=== PATIENT | male | born 1970 | race American Indian/Alaskan Native ===

== ENCOUNTER 2019-07-12 18:29 | Emergency (ER) | payer MEDICAID ==
[~2019-07-12] VITALS: Ht 190.5 cm; Wt 106.8 kg
[~2019-07-12 18:29] MED LIST: NO HOME MEDS
[2019-07-12] MEDS ORDERED: TETanus/Pertussis (Acell)/Diphther VAC/PF (Tdap-Adult) 0.5ml syringe IM ONE (18:50)
[2019-07-12] MEDS ORDERED: LIDOcaine 1% w/epiNEPHrine 1:200,000 30ml vial IM ONE (18:50)
[2019-07-12] MEDS ORDERED: rabies immune globulin/PF 150 unit/ml inj IM ONE (18:50)
[2019-07-12] MEDS ORDERED: rabies vaccine (PCEC)/PF 2.5 unit kit IM ONE (18:50)
[2019-07-12] MEDS ORDERED: HYDROcodone/acetaminophen 5mg/325mg tablet PO ONE (18:50)
[2019-07-12] MEDS ORDERED: rabies immune globulin/PF 150 unit/ml inj IMVAC ONE (19:50)
[2019-07-12] MEDS ORDERED: rabies vaccine (PCEC)/PF 2.5 unit kit IMVAC ONE (19:50)
[2019-07-12] MEDS ORDERED: HYDR-4383 PO (21:03)
[2019-07-12] MEDS ORDERED: AMOX-580 PO (21:03)
[2019-07-12 21:20] VITALS: BP 140/88
== END 2019-07-12 21:27 | disposition home or self-care (01) ==
LOC: ER 18:29
DX: S51.812A Laceration without foreign body of left forearm, initial encounter (principal); S81.812A Laceration without foreign body, left lower leg, initial encounter; S61.532A Puncture wound without foreign body of left wrist, initial encounter; S81.032A Puncture wound without foreign body, left knee, initial encounter; Z20.3 Contact with and (suspected) exposure to rabies; F12.90 Cannabis use, unspecified, uncomplicated; F15.90 Other stimulant use, unspecified, uncomplicated; Z98.890 Other specified postprocedural states; W54.0XXA Bitten by dog, initial encounter; Y93.89 Activity, other specified; Y99.8 Other external cause status; Y92.89 Other specified places as the place of occurrence of the external cause
CPT/HCPCS: 12002; 73110; 90375; 90471; 90472; 90675; 96372; 99284

== ENCOUNTER 2019-07-15 08:36 | Emergency (ER) | payer MEDICAID ==
[~2019-07-15] VITALS: Ht 190.5 cm; Wt 104.9 kg
[~2019-07-15 08:36] MED LIST changes: +AMOX-580 PO; +HYDR-4383 PO
[2019-07-15] MEDS ORDERED: rabies vaccine (PCEC)/PF 2.5 unit kit IMVAC ONE (09:25)
[2019-07-15 09:37] VITALS: BP 131/80
== END 2019-07-15 09:38 | disposition home or self-care (01) ==
LOC: ER 08:37
DX: Z23 Encounter for immunization (principal); F12.90 Cannabis use, unspecified, uncomplicated; F15.90 Other stimulant use, unspecified, uncomplicated; Z98.890 Other specified postprocedural states; Z79.899 Other long term (current) drug therapy
CPT/HCPCS: 90471; 90675; 99283

== ENCOUNTER 2019-07-20 10:41 | Emergency (ER) | payer MEDICAID ==
[~2019-07-20] VITALS: Ht 190.5 cm; Wt 106.0 kg
[2019-07-20 10:56] VITALS: BP 118/80
[2019-07-20] MEDS ORDERED: AMOX-580 PO (12:23)
[2019-07-20] MEDS ORDERED: RIFA300C4 PO (12:25)
[2019-07-20] MEDS ORDERED: rifampin 300mg capsule PO ONE (12:25)
[2019-07-20] MEDS ORDERED: amox tr/potassium clavulanate 875/125mg TAB PO ONE (12:25)
[2019-07-20] MEDS ORDERED: rifampin 300mg capsule PO SCH (12:25)
--- NOTE | 2019-07-20 12:40 | NUR ---
two sutures removed from forearm and 1 suture removed from leg. Addendum: 07/20/19 at 1241 by RWANNALEECOX rest of sutures left in place by MD [place]burn because wound on leg is still healing.
== END 2019-07-20 13:03 | disposition home or self-care (01) ==
LOC: ER 10:41
DX: S81.802A Unspecified open wound, left lower leg, initial encounter (principal); S41.102A Unspecified open wound of left upper arm, initial encounter; L03.114 Cellulitis of left upper limb; L03.116 Cellulitis of left lower limb; F17.210 Nicotine dependence, cigarettes, uncomplicated; F12.90 Cannabis use, unspecified, uncomplicated; F15.90 Other stimulant use, unspecified, uncomplicated; Z71.6 Tobacco abuse counseling; Z98.890 Other specified postprocedural states; Z79.899 Other long term (current) drug therapy; W54.0XXA Bitten by dog, initial encounter; Y93.89 Activity, other specified; Y92.89 Other specified places as the place of occurrence of the external cause; Y99.8 Other external cause status
CPT/HCPCS: 99283; 99406

== ENCOUNTER 2019-09-21 20:43 | Emergency (ER) | payer MEDICAID ==
[~2019-09-21] VITALS: Ht 190.5 cm; Wt 106.8 kg
[~2019-09-21 20:43] MED LIST changes: -AMOX-580 PO; +RIFA300C4 PO
[2019-09-21] MEDS ORDERED: TETanus/Pertussis (Acell)/Diphther VAC/PF (Tdap-Adult) 0.5ml syringe IMVAC ONE (21:50)
[2019-09-21] MEDS ORDERED: LIDOcaine 1% w/EPI 1:200,000 injection 10mL vial IM ONE (21:50)
[2019-09-21] MEDS ORDERED: LIDOcaine 1% W/epiNEPHrine 1:100,000 20ml vial IJ ONE (21:55)
--- NOTE | 2019-09-21 22:10 | NUR ---
kel barrett at bedside with #11 blade to lacterate wound to chest post lido. oozing sersagious and blood puss noted draining wound cx and sent to lab
[2019-09-21] MEDS ORDERED: CEPH500C5 PO (22:31)
[2019-09-21] MEDS ORDERED: SULF1TAB49 PO (22:31)
[2019-09-21] MEDS ORDERED: HYDR-3965 PO (22:32)
[2019-09-21] MEDS ORDERED: sulfamethoxazole/trimethoprim DS (800/160mg) tablet PO ONE (22:35)
[2019-09-21] MEDS ORDERED: cephalexin 250mg capsule PO ONE (22:35)
--- NOTE | 2019-09-21 22:54 | NUR ---
dressing applied to chest post incision and drainage. xeroform with non adhesive dressing with 4x4 and paper tape applied pt tolerated well
--- NOTE | 2019-09-21 23:01 | NUR ---
the drain in place: loop drain instructed pt to keep wound covered for 48-72 hrs and return to ed on 09/23/19 for loop drain removal pt verbalized understanding given dressing supplies
[2019-09-21 23:05] VITALS: BP 126/72
== END 2019-09-21 23:00 | disposition home or self-care (01) ==
LOC: ER 20:44
DX: L02.213 Cutaneous abscess of chest wall (principal); L03.313 Cellulitis of chest wall; F12.90 Cannabis use, unspecified, uncomplicated; F15.90 Other stimulant use, unspecified, uncomplicated; Z98.890 Other specified postprocedural states; Z79.899 Other long term (current) drug therapy
CPT/HCPCS: 10060; 87070; 87077; 87186; 90471; 99284

== ENCOUNTER 2019-09-24 17:38 | Emergency (ER) | payer MEDICAID ==
[~2019-09-24] VITALS: Ht 190.5 cm; Wt 100.0 kg
[~2019-09-24 17:38] MED LIST changes: +CEPH500C5 PO; +HYDR-3965 PO; +SULF1TAB49 PO
[2019-09-24 18:01] VITALS: BP 127/77
--- NOTE | 2019-09-24 18:28 | NUR ---
PATIENT SEEN HERE FOR DRAINAGE OF ABSCESS AND IS HERE FOR WOUND RECHECK. AREA IS REDDENED WITH MOD SEROSANGUINOUS DRAINAGE.
== END 2019-09-24 19:27 | disposition home or self-care (01) ==
LOC: ER 17:39
DX: L02.213 Cutaneous abscess of chest wall (principal); F12.90 Cannabis use, unspecified, uncomplicated; F15.90 Other stimulant use, unspecified, uncomplicated; B35.4 Tinea corporis; Z48.03 Encounter for change or removal of drains; Z98.890 Other specified postprocedural states; Z79.899 Other long term (current) drug therapy
CPT/HCPCS: 99281; 99282

== ENCOUNTER 2022-03-10 19:57 | Emergency (ER) | payer SELFPAY ==
[~2022-03-10] VITALS: Ht 190.5 cm; Wt 111.4 kg
[~2022-03-10 19:57] MED LIST changes: -CEPH500C5 PO; -HYDR-3965 PO; -RIFA300C4 PO; +RIFA300C9 PO; -SULF1TAB49 PO
[2022-03-10 20:15] VITALS: BP 144/87
== END 2022-03-10 23:50 | disposition left against medical advice (07) ==
LOC: ER 19:57
DX: L08.9 Local infection of the skin and subcutaneous tissue, unspecified (principal)